=== PATIENT | male | born 1960 | race Caucasian/White ===

== ENCOUNTER 2017-06-12 12:13 | Inpatient (IN) | payer OTHER ==
[2017-06-12 13:11] VITALS: BMI 22.6
--- NOTE | 2017-06-12 15:42 | HP ---
Admission [facility] Chief Complaint: i need help to stop using cocaine and marijuana Allergies/Adverse Reactions: Allergies Allergy/AdvReac Type Severity Reaction Status Date / Time No Known Allergies Allergy Verified 06/12/17 15:47 History of Present Illness: this 56 years old male with cocaine and marijuana dependence,seeking rehab,last detox [facility] 2002 history of hypertension,copd, ambulation with cane ,fx of lumbar spine and herniated disc longest period of sobriety 13 years nicotine dependence - Ebola screening Have you traveled outside of the country in the last 21 days: No Have you had contact with anyone from an Ebola affected area: No Have you been sick,other than usual withdrawal symptoms: No Do you have a fever: No - Review of Systems Constitutional: Malaise, Unexplained wgt Loss EENT: reports: No Symptoms Reported Respiratory: reports: No Symptoms reported, Other (copd) Cardiac: reports: No Symptoms Reported GI: reports: No Symptoms Reported : reports: No Symptoms Reported Musculoskeletal: reports: No Symptoms Reported Integumentary: reports: No Symptoms Reported Neuro: reports: No Symptoms reported Endocrine: reports: No Symptoms Reported Hematology: reports: No Symptoms Reported Psychiatric: reports: No Sypmtoms Reported, Judgement Intact, Mood/Affect Appropiate, Orientated x3 (bipolar disorder) Patient History - Patient Medical History Hx Asthma: Yes (on albuterol inhaler) Hx Chronic Obstructive Pulmonary Disease (COPD): Yes Hx Cancer: No Hx Cardiac Disorders: No Hx Congestive Heart Failure: No Hx Hypertension: Yes (on med) Hx Pacemaker: No HX Cerebrovascular Accident: No Hx Seizures: No Hx Dementia: No Hx Diabetes: No Hx Gastrointestinal Disorders: Yes (reports gastric polyp removal 05/2015) Hx Liver Disease: No Hx Genitourinary Disorders: No Hx Renal Disease (ESRD): No Hx Thyroid Disease: No Hx Human Immunodeficiency Virus (HIV): No (2013 last negative) Hx Hepatitis C: No Hx Depression: No Hx Suicide Attempt: No Hx Bipolar Disorder: Yes (never hospitalized, never suicidal) Hx Schizophrenia: No Other Medical History: no homicidal,no sucidal,low back pain herniated disc, ambulation with cane - Patient Surgical History Hx Neurologic Surgery: No Hx Cataract Extraction: No Hx Cardiac Surgery: No Hx Lung Surgery: Yes (history lung collapse 1999 - chest tube right) Hx Breast Surgery: No Hx Breast Biopsy: No Hx Abdominal Surgery: No Hx Appendectomy: No Hx Cholecystectomy: No Hx Genitourinary Surgery: No Hx Section: No Hx Orthopedic Surgery: No Anesthesia Reaction: No - PPD History Previous Implant?: Yes Documented Results: Negative w/o proof Implanted On Prior [facility] Admission?: Yes PPD to be Administered?: Yes - Smoking Cessation Smoking history: Current every day smoker Have you smoked in the past 12 months: Yes Aproximately how many cigarettes per day: 4 Hx Chewing Tobacco Use: No Initiated information on smoking cessation: Yes 'Breaking Loose' booklet given: 06/12/17 - Substance & Tx. History Hx Alcohol Use: No Hx Substance Use: Yes Substance Use Type: Cocaine, Marijuana Hx Substance Use Treatment: Yes ([facility] in 2002) - Substances Abused Cocaine Route: Smoking Frequency: Daily Amount used: $100 AND UP Age of first use: 18 Date of Last Use: 06/11/17 Marijuana/Hashish Route: Smoking Frequency: Daily Amount used: $20 Age of first use: 16 Date of Last Use: 06/12/17 Family Disease History - Family Disease History Family Disease History: Diabetes: Mother, Heart Disease: Mother, Other: Father ( alcoholic), Daughter Admission Physical Exam S - Vital Signs Vital Signs: Vital Signs - 24 hr 06/12/17 13:10 Temperature 97.1 F L Pulse Rate 58 L Respiratory 16 Rate Blood Pressure 147/86 - Physical General Appearance: Yes: Within Normal Limits HEENTM: Yes: Normal ENT Inspection, Normocephalic, Pharynx Normal, Other (poor dental hygiene) Respiratory: Yes: Lungs Clear, Normal Breath Sounds, No Respiratory Distress, Other (s/p pneumothorax right) Neck: Yes: Within Normal Limits, Supple, Trachea in good position Breast: Yes: Within Normal Limits Cardiology: Yes: Within Normal Limits, Regular Rhythm, Regular Rate, S1, S2 Abdominal: Yes: Within Normal Limits, Normal Bowel Sounds, Non Tender, Flat, Soft Genitourinary: Yes: Within Normal Limits Back: Yes: Normal Inspection (low back pain herniated disc) Musculoskeletal: Yes: Back pain, Muscle Pain, Other (ambulation with cane) Extremities: Yes: Within Normal Limits Neurological: Yes: lay up operator II-XII NML intact, Fully Oriented, Alert, Motor Strength 5/5 Integumentary: Yes: Within Normal Limits Lymphatic: Yes: Within Normal Limits - Diagnostic (1) Alcohol dependence Current Visit: Yes Status: Acute (2) Nicotine dependence Current Visit: No Status: Chronic Comment: counseled cessation, did not like gum, patch did not help, chantix caused nausea (3) Cocaine dependence Current Visit: Yes Status: Acute (4) Cannabis dependence Current Visit: Yes Status: Acute (5) COPD (chronic obstructive pulmonary disease) Current Visit: No Status: Chronic Comment: for f/u with pulmonary, uses enhalers (missed 02/21 appt ) - made appt for him for 05/[address] garcia - CT done - told he has COPD - f/u appt 08/19/16 - did not f/u (6) HTN (hypertension) Current Visit: No Status: Chronic Comment: on meds, sees primary (7) Low back pain Current Visit: Yes Status: Acute (8) Herniated lumbar intervertebral disc Current Visit: Yes Status: Acute (9) Use of cane as ambulatory aid Current Visit: Yes Status: Acute (10) Bipolar disorder Current Visit: Yes Status: Acute Cleared for Admission S - Detox or Rehab Claeared for Rehab Admission: Yes [facility] Breath Alcohol Content Breath Alcohol Content: 0 Urine Drug Screen - Results Drug Screen Negative: No Urine Drug Screen Results: THC-Marijuana, MICHELLE-Cocaine Inpatient Rehab Admission - Initial Determination Are CD services needed?: Yes Free of communicable disease: Yes Not in need of hospitalization: Yes - Rehab Admission Criteria Previous failed treatment: Yes Poor recovery environment: Yes Comorbidities: Yes Lacks judgement: No Patient is meeting Inpatient Rehab admission criteria:: Yes
[2017-06-12] MEDS ORDERED: MAGNESIUM HYDROX 2400MG/30ML ORAL SUSPENSION 30 ML CUP PO PRN (16:03)
[2017-06-12] MEDS ORDERED: MENTHOL/PHENOL 1 EACH UD MM PRN (16:03)
[2017-06-12] MEDS ORDERED: LOPERAMIDE HCL 2 MG CAPSULE PO PRN (16:03)
[2017-06-12] MEDS ORDERED: IBUPROFEN 400 MG TABLET (FP) PO PRN (16:03)
[2017-06-12] MEDS ORDERED: hydrOXYzine PAMOATE 25 MG CAPSULE (FP) PO PRN (16:03)
[2017-06-12] MEDS ORDERED: guaiFENesin/D-METHORPHAN HB 10 ML UNIT-DOSE CUPS PO PRN (16:03)
[2017-06-12] MEDS ORDERED: P-EPHED 60MG/TRIPROLIDI 2.5MG TABLET PO PRN (16:03)
[2017-06-12] MEDS ORDERED: MAG HYDROX/AL HYDROX/SIMETH 30 ML UNIT-DOSE CUP PO PRN (16:03)
[2017-06-12] MEDS ORDERED: MAGNESIUM CITRATE 300 ML BOTTLE PO PRN (16:03)
[2017-06-12] MEDS ORDERED: ACETAMINOPHEN 325 MG TABLET (FP) PO PRN (16:03)
[2017-06-12] MEDS ORDERED: BACLOFEN 10 MG TABLET (FP) PO PRN (16:06)
--- NOTE | 2017-06-12 19:06 | PN ---
[facility] Progress Note Note: Psychiatrist broadcast operations manager note: Called to order medications for newly admitted patient from [facility] today. According to [facility] staff, patient list of home medications is the following: Cogentin 1 mg po daily, Risperdal 1 mg po BID, Seroquel 200 mg po HS and Cymbalta 60 mg po daily. However, pharmacy claims from [facility] shows scripts for Cogentin 1 mg po BID, Risperdal 2 mg daily & 3 mg HS , Seroquel 200 mg po HS and Cymbalta 60 mg po daily filled on 06/01/17. Medications are being ordered according to pharmacy claims not according to home medication entered by [facility] staff. Patient did not bring any bottle or any information for verification of his home medications. Unclear where [facility] staff obtained their information since patient could not tell nurse ZEUS the dosage of his medications
[2017-06-12] MEDS: GABAPENTIN 300 MG CAPSULE (FP) PO SCH ×2 (19:57→22:07)
[2017-06-12] MEDS: ERGOCALCIFEROL (VITAMIN D2) 50,000 UNIT CAPSULE (FP) PO SCH (19:58)
[2017-06-12] MEDS ORDERED: risperiDONE 2 MG TABLET PO SCH (22:00)
[2017-06-12] MEDS ORDERED: risperiDONE 1 MG TABLET (FP) PO SCH (22:00)
[2017-06-12] MEDS: THIAMINE HCL 100 MG TABLET (FP) PO SCH (22:05)
[2017-06-12] MEDS: QUEtiapine FUMARATE 200 MG TABLET PO SCH (22:06)
[2017-06-12] MEDS: BENZTROPINE MESYLATE 1 MG TABLET (FP) PO SCH (22:07)
[2017-06-12 23:08] LABS: URINE APPEARANCE CLEAR; URINE BILIRUBIN NEGATIVE (<2.0 mg/dL); URINE COLOR YELLOW; URINE GLUCOSE (UA) NEGATIVE (NEGATIVE); URINE KETONE NEGATIVE (NEGATIVE); URINE LEUK ESTERASE NEGATIVE (NEGATIVE); URINE NITRITE NEGATIVE (NEGATIVE); URINE PROTEIN NEGATIVE (NEGATIVE); URINE UROBILINOGEN NEGATIVE mg/dL (0.2-1.0)
[2017-06-12 23:17] LABS: URINE MUCUS RARE
--- NOTE | 2017-06-13 06:39 | HP ---
Psychiatrist Admission - Data Date of interview: 06/13/17 Admission source: Pain management clinic([facility]) Identifying data: This is the second [facility] for this 56 years old single male, father of 3 children, unemployed on SSI , domiciled living in a room Medical History: Significant for hypertension, COPD, herniated disc, history of surgeries for pneumothorax, fracture of lumbar spine and removal of gastric polyps. Smokes 4 cigarettes daily Psychiatric History: Patient reports being diagnose with Bipolar/Schozophrenia 6 -7 years ago. Denies previous psychiatric hospitalization or suicidal attempt. Reports seeing Dr Zhao, a private psychiatrist located on [facility] in [place] and he is prescribed Cogentin, Cymbalta, Seroquel and Risperdal. He has no recollection of dosage of these medications. According to [facility] home medication list, he is on Cogentin 1 mg po daily, Cymbalta 60 mg po daily, Seroquel 200 mg po HS and Risperdal 2 mg daily & 3 mg HS. According to pharmacy claims, scripts for Cogentin 1 mg po BID, Seroquel 200 mg po HS, Cymbalta 60 mg po daily and Risperdal 2 mg daily & 3 mg HS were filled on 06/01/17 at [facility]([phone]) located at [address] [place] [address]. At present, reports feeling well but sleeping poorly Physical/Sexual Abuse/Trauma History: Denies history of emotional, physical or sexual abuse or DV relationship Additional Comment: Reports history of 2 previous arrests on charges possession of control substance(crack cocaine). Denies being currently on probation Vital Signs: Vital Signs - 24 hr 06/12/17 06/13/17 06/13/17 13:10 00:30 03:30 Temperature 97.1 F L Pulse Rate 58 L Respiratory 16 18 20 Rate Blood Pressure 147/86 Allergies/Adverse Reactions: Allergies Allergy/AdvReac Type Severity Reaction Status Date / Time No Known Allergies Allergy Verified 06/12/17 15:47 Date of last physical exam: 06/12/17 Concur with the findings of this exam: Yes - Substance Abuse/Tx History Hx Alcohol Use: No Hx Substance Use: Yes Substance Use Type: Cocaine (Started smoking crack cocaine at age 18, consumes $ 100 worth daily. Last smoked on 06/11/17), Marijuana (Started smoking marijuana at age 16, consumes $20 worth daily. Last smoked on 06/12/17) Hx Substance Use Treatment: Yes ( 2 previous inpt rehab @ [facility]) Mental Status Exam - Mental Status Exam Alert and Oriented to: Time, Place, Person Cognitive Function: Fair Patient Appearance: Well Groomed, Disheveled Mood: Hopeful, Euthymic Affect: Appropriate Patient Behavior: Cooperative Speech Pattern: Clear Voice Loudness: Normal Thought Process: Intact, Goal Oriented Hallucinations: Denies Suicidal Ideation: Denies Homicidal Ideation: Denies Insight/Judgement: Fair Sleep: Poorly Appetite: Good Muscle strength/Tone: Normal Gait/Station: Other (uses a cane as ambulatory aid) Psychiatric Findings - Problem List (Joice 1, 2,3) (1) Cocaine dependence Current Visit: Yes Status: Acute (2) Cannabis dependence Current Visit: Yes Status: Acute (3) Nicotine dependence Current Visit: No Status: Chronic Comment: counseled cessation, did not like gum, patch did not help, chantix caused nausea (4) Bipolar disorder Current Visit: Yes Status: Chronic (5) Schizoaffective disorder Current Visit: Yes Status: Ruled-out (6) Substance-induced sleep disorder Current Visit: Yes Status: Acute (7) Herniated lumbar intervertebral disc Current Visit: Yes Status: Chronic (8) Low back pain Current Visit: Yes Status: Chronic (9) Use of cane as ambulatory aid Current Visit: Yes Status: Acute (10) COPD (chronic obstructive pulmonary disease) Current Visit: No Status: Chronic Comment: for f/u with pulmonary, uses enhalers (missed 02/21 appt ) - made appt for him for 05/[address] garcia - CT done - told he has COPD - f/u appt 08/19/16 - did not f/u (11) HTN (hypertension) Current Visit: No Status: Chronic Comment: on meds, sees primary (12) Low back pain radiating to both legs Current Visit: No Status: Chronic Comment: xray shows marked degenerative changes L5-S1, await medical records, risks of opiates discussed at length - pain agreement reviewed and signed, gets PT at [facility], [facility] baclofen prn though state not too helpful, heating pad use non opiate methods topical diclofenac not covered by insurance - will try to get [place] safekeeping of medication reviewed, does not drive (license suspended) , wearing back brace MRI 12/09 shows disc dessication, spondylosis, bilateral foraminal stenosis L5-S1 , broad based central disc protrusion - patient complains of very bothersome pain - asking for referral to neurosurg - will send to [facility] dr schroeder for evaluation - had f/u appt 03/14/16 for possible surgery but he did not go increase gabapentin to 600 qid did get heating pad consider EMG next visit ORT = 9 (high risk) DIRE = 15 (poor candidate for halfway opioids) - Initial Treatment Plan Initial Treatment Plan: 1) Continue Risperdal 2 mg daily & 3 mg HS, Cogentin 1 mg po BID, Seroquel 200 mg po HS and Cymbalta 60 mg po daily(medications confirmed by calling pharmacist as well). 2) Monitor progress
--- NOTE | 2017-06-13 09:52 | EKG ---
Test Reason : Blood Pressure : / mmHG Vent. Rate : 058 BPM Atrial Rate : 058 BPM P-R Int : 128 ms QRS Dur : 092 ms QT Int : 420 ms P-R-T Axes : 068 080 065 degrees QTc Int : 412 ms SINUS BRADYCARDIA MINIMAL VOLTAGE CRITERIA FOR LVH, MAY BE NORMAL VARIANT BORDERLINE ECG NO PREVIOUS ECGS AVAILABLE Confirmed by MD Fuad, Italo ([id number]) on 06/13/2017 9:51:56 AM Referred By: Confirmed By:Italo Merida MD
[2017-06-13] MEDS: ASPIRIN 81 MG CHEWABLE TABLETS PO SCH (09:54)
[2017-06-13] MEDS: PRENATAL VITAMINS W/ FOLIC ACID TABLET (FP) PO SCH (09:54)
[2017-06-13] MEDS: GABAPENTIN 300 MG CAPSULE (FP) PO SCH ×4 (09:54→21:40)
[2017-06-13 09:55] LABS: HEMATOCRIT 43.5 % (35.4-49); HEMOGLOBIN 15.1 GM/dL (11.7-16.9); MCH 32.7 pg (25.7-33.7); MCHC 34.8 g/dl (32.0-35.9); MEAN CELL VOLUME 93.7 fl (80-96); MEAN PLT VOLUME 9.7 fl (7.5-11.1); PLATELET COUNT 159 K/MM3 (134-434); RBC 4.64 M/mm3 (4.00-5.60); RDW 13.9 % (11.9-15.9); WHITE BLOOD COUNT 6.1 K/mm3 (4.0-10.0)
[2017-06-13] MEDS: risperiDONE 2 MG TABLET PO SCH (09:55)
[2017-06-13] MEDS: amLODIPine BESYLATE 10 MG TABLET (FP) PO SCH (09:55)
[2017-06-13] MEDS: BENZTROPINE MESYLATE 1 MG TABLET (FP) PO SCH ×2 (09:55→21:40)
[2017-06-13] MEDS ORDERED: BENZTROPINE MESYLATE 1 MG TABLET (FP) PO SCH (10:00)
[2017-06-13] MEDS ORDERED: DULoxetine HCL 20 MG CAPSULE.DR (FP) PO SCH (10:00)
[2017-06-13 10:12] LABS: CHLORIDE 103 mmol/L (98-107); POTASSIUM 4.2 mmol/L (3.5-5.1); SODIUM 141 mmol/L (136-145)
[2017-06-13 11:14] LABS: ALK PHOS 116 U/L (45-117); ANION GAP 4 (8-16); BILIRUBIN,TOTAL 0.3 mg/dL (0.2-1.0); BLOOD UREA NITROGEN 20 mg/dL (7-18); CALCIUM 9.3 mg/dL (8.5-10.1); CO2 34 mmol/L (21-32); CREATININE 0.9 mg/dL (0.7-1.3); GLUCOSE,RANDOM 81 mg/dL (74-106); SGOT/AST 15 U/L (15-37); SGPT/ALT 24 U/L (12-78)
[2017-06-13] MEDS: QUEtiapine FUMARATE 200 MG TABLET PO SCH (21:40)
[2017-06-13] MEDS: THIAMINE HCL 100 MG TABLET (FP) PO SCH (21:40)
[2017-06-13] MEDS: risperiDONE 3 MG TABLET PO SCH (21:40)
[2017-06-14] MEDS ORDERED: DULoxetine HCL 20 MG CAPSULE.DR (FP) ONE (08:51)
[2017-06-14] MEDS: DULoxetine HCL 60 MG CAPSULE.DR PO SCH (10:02)
[2017-06-14] MEDS: ASPIRIN 81 MG CHEWABLE TABLETS PO SCH (10:03)
[2017-06-14] MEDS: risperiDONE 2 MG TABLET PO SCH (10:03)
[2017-06-14] MEDS: PRENATAL VITAMINS W/ FOLIC ACID TABLET (FP) PO SCH (10:03)
[2017-06-14] MEDS: amLODIPine BESYLATE 10 MG TABLET (FP) PO SCH (10:03)
[2017-06-14] MEDS: GABAPENTIN 300 MG CAPSULE (FP) PO SCH ×4 (10:03→21:28)
[2017-06-14] MEDS: BENZTROPINE MESYLATE 1 MG TABLET (FP) PO SCH ×2 (10:03→21:28)
[2017-06-14] MEDS: risperiDONE 3 MG TABLET PO SCH (21:29)
[2017-06-14] MEDS: QUEtiapine FUMARATE 200 MG TABLET PO SCH (21:29)
[2017-06-14] MEDS: THIAMINE HCL 100 MG TABLET (FP) PO SCH (21:29)
[2017-06-15] MEDS ORDERED: DULoxetine HCL 20 MG CAPSULE.DR (FP) ONE (08:49)
[2017-06-15] MEDS: ASPIRIN 81 MG CHEWABLE TABLETS PO SCH (09:48)
[2017-06-15] MEDS: risperiDONE 2 MG TABLET PO SCH (09:48)
[2017-06-15] MEDS: PRENATAL VITAMINS W/ FOLIC ACID TABLET (FP) PO SCH (09:48)
[2017-06-15] MEDS: GABAPENTIN 300 MG CAPSULE (FP) PO SCH ×4 (09:48→21:25)
[2017-06-15] MEDS: amLODIPine BESYLATE 10 MG TABLET (FP) PO SCH (09:48)
[2017-06-15] MEDS: DULoxetine HCL 60 MG CAPSULE.DR PO SCH (09:49)
[2017-06-15] MEDS: BENZTROPINE MESYLATE 1 MG TABLET (FP) PO SCH ×2 (09:49→21:25)
[2017-06-15] MEDS: QUEtiapine FUMARATE 200 MG TABLET PO SCH (21:25)
[2017-06-15] MEDS: risperiDONE 3 MG TABLET PO SCH (21:25)
[2017-06-15] MEDS: THIAMINE HCL 100 MG TABLET (FP) PO SCH (21:25)
[2017-06-16] MEDS: PRENATAL VITAMINS W/ FOLIC ACID TABLET (FP) PO SCH (09:54)
[2017-06-16] MEDS: ASPIRIN 81 MG CHEWABLE TABLETS PO SCH (09:54)
[2017-06-16] MEDS: DULoxetine HCL 60 MG CAPSULE.DR PO SCH (09:54)
[2017-06-16] MEDS: amLODIPine BESYLATE 10 MG TABLET (FP) PO SCH (09:54)
[2017-06-16] MEDS: BENZTROPINE MESYLATE 1 MG TABLET (FP) PO SCH ×2 (09:56→21:18)
[2017-06-16] MEDS: GABAPENTIN 300 MG CAPSULE (FP) PO SCH ×4 (09:56→21:18)
[2017-06-16] MEDS: risperiDONE 2 MG TABLET PO SCH (09:56)
[2017-06-16] MEDS: QUEtiapine FUMARATE 200 MG TABLET PO SCH (21:18)
[2017-06-16] MEDS: risperiDONE 3 MG TABLET PO SCH (21:18)
[2017-06-16] MEDS: THIAMINE HCL 100 MG TABLET (FP) PO SCH (21:18)
[2017-06-17] MEDS: DULoxetine HCL 60 MG CAPSULE.DR PO SCH (10:16)
[2017-06-17] MEDS: PRENATAL VITAMINS W/ FOLIC ACID TABLET (FP) PO SCH (10:16)
[2017-06-17] MEDS: GABAPENTIN 300 MG CAPSULE (FP) PO SCH ×4 (10:16→21:41)
[2017-06-17] MEDS: BENZTROPINE MESYLATE 1 MG TABLET (FP) PO SCH ×2 (10:16→21:41)
[2017-06-17] MEDS: ASPIRIN 81 MG CHEWABLE TABLETS PO SCH (10:17)
[2017-06-17] MEDS: amLODIPine BESYLATE 10 MG TABLET (FP) PO SCH (10:17)
[2017-06-17] MEDS: risperiDONE 2 MG TABLET PO SCH (10:17)
[2017-06-17] MEDS: THIAMINE HCL 100 MG TABLET (FP) PO SCH (21:41)
[2017-06-17] MEDS: QUEtiapine FUMARATE 200 MG TABLET PO SCH (21:41)
[2017-06-17] MEDS: risperiDONE 3 MG TABLET PO SCH (21:41)
[2017-06-18] MEDS: DULoxetine HCL 60 MG CAPSULE.DR PO SCH (10:02)
[2017-06-18] MEDS: amLODIPine BESYLATE 10 MG TABLET (FP) PO SCH (10:02)
[2017-06-18] MEDS: BENZTROPINE MESYLATE 1 MG TABLET (FP) PO SCH ×2 (10:02→21:26)
[2017-06-18] MEDS: risperiDONE 2 MG TABLET PO SCH (10:02)
[2017-06-18] MEDS: ASPIRIN 81 MG CHEWABLE TABLETS PO SCH (10:02)
[2017-06-18] MEDS: GABAPENTIN 300 MG CAPSULE (FP) PO SCH ×4 (10:02→21:27)
[2017-06-18] MEDS: PRENATAL VITAMINS W/ FOLIC ACID TABLET (FP) PO SCH (10:02)
[2017-06-18] MEDS: QUEtiapine FUMARATE 200 MG TABLET PO SCH (21:26)
[2017-06-18] MEDS: THIAMINE HCL 100 MG TABLET (FP) PO SCH (21:26)
[2017-06-18] MEDS: risperiDONE 3 MG TABLET PO SCH (21:27)
[2017-06-18] MEDS: MELATONIN 5 MG TABLETS PO PRN (21:28)
[2017-06-19] MEDS: risperiDONE 2 MG TABLET PO SCH (10:15)
[2017-06-19] MEDS: amLODIPine BESYLATE 10 MG TABLET (FP) PO SCH (10:15)
[2017-06-19] MEDS: GABAPENTIN 300 MG CAPSULE (FP) PO SCH ×4 (10:16→21:18)
[2017-06-19] MEDS: ERGOCALCIFEROL (VITAMIN D2) 50,000 UNIT CAPSULE (FP) PO SCH (10:16)
[2017-06-19] MEDS: DULoxetine HCL 60 MG CAPSULE.DR PO SCH (10:16)
[2017-06-19] MEDS: ASPIRIN 81 MG CHEWABLE TABLETS PO SCH (10:16)
[2017-06-19] MEDS: PRENATAL VITAMINS W/ FOLIC ACID TABLET (FP) PO SCH (10:16)
[2017-06-19] MEDS: BENZTROPINE MESYLATE 1 MG TABLET (FP) PO SCH ×2 (10:18→21:17)
[2017-06-19] MEDS: THIAMINE HCL 100 MG TABLET (FP) PO SCH (21:17)
[2017-06-19] MEDS: QUEtiapine FUMARATE 200 MG TABLET PO SCH (21:17)
[2017-06-19] MEDS: risperiDONE 3 MG TABLET PO SCH (21:17)
[2017-06-20] MEDS: GABAPENTIN 300 MG CAPSULE (FP) PO SCH ×4 (09:56→21:26)
[2017-06-20] MEDS: amLODIPine BESYLATE 10 MG TABLET (FP) PO SCH (09:56)
[2017-06-20] MEDS: DULoxetine HCL 60 MG CAPSULE.DR PO SCH (09:56)
[2017-06-20] MEDS: PRENATAL VITAMINS W/ FOLIC ACID TABLET (FP) PO SCH (09:56)
[2017-06-20] MEDS: BENZTROPINE MESYLATE 1 MG TABLET (FP) PO SCH ×2 (09:56→21:26)
[2017-06-20] MEDS: ASPIRIN 81 MG CHEWABLE TABLETS PO SCH (09:56)
[2017-06-20] MEDS: risperiDONE 2 MG TABLET PO SCH (09:56)
[2017-06-20] MEDS: QUEtiapine FUMARATE 200 MG TABLET PO SCH (21:26)
[2017-06-20] MEDS: MELATONIN 5 MG TABLETS PO PRN (21:26)
[2017-06-20] MEDS: risperiDONE 3 MG TABLET PO SCH (21:26)
[2017-06-20] MEDS: THIAMINE HCL 100 MG TABLET (FP) PO SCH (21:26)
[2017-06-21] MEDS: amLODIPine BESYLATE 10 MG TABLET (FP) PO SCH (10:06)
[2017-06-21] MEDS: BENZTROPINE MESYLATE 1 MG TABLET (FP) PO SCH ×2 (10:06→21:23)
[2017-06-21] MEDS: risperiDONE 2 MG TABLET PO SCH (10:06)
[2017-06-21] MEDS: PRENATAL VITAMINS W/ FOLIC ACID TABLET (FP) PO SCH (10:06)
[2017-06-21] MEDS: DULoxetine HCL 60 MG CAPSULE.DR PO SCH (10:06)
[2017-06-21] MEDS: GABAPENTIN 300 MG CAPSULE (FP) PO SCH ×4 (10:06→21:23)
[2017-06-21] MEDS: ASPIRIN 81 MG CHEWABLE TABLETS PO SCH (10:06)
[2017-06-21] MEDS: THIAMINE HCL 100 MG TABLET (FP) PO SCH (21:22)
[2017-06-21] MEDS: QUEtiapine FUMARATE 200 MG TABLET PO SCH (21:22)
[2017-06-21] MEDS: risperiDONE 3 MG TABLET PO SCH (21:23)
[2017-06-21] MEDS: MELATONIN 5 MG TABLETS PO PRN (21:23)
[2017-06-22] MEDS: BENZTROPINE MESYLATE 1 MG TABLET (FP) PO SCH ×2 (09:45→21:37)
[2017-06-22] MEDS: ASPIRIN 81 MG CHEWABLE TABLETS PO SCH (09:45)
[2017-06-22] MEDS: PRENATAL VITAMINS W/ FOLIC ACID TABLET (FP) PO SCH (09:45)
[2017-06-22] MEDS: DULoxetine HCL 60 MG CAPSULE.DR PO SCH (09:45)
[2017-06-22] MEDS: amLODIPine BESYLATE 10 MG TABLET (FP) PO SCH (09:45)
[2017-06-22] MEDS: GABAPENTIN 300 MG CAPSULE (FP) PO SCH ×4 (09:45→21:37)
[2017-06-22] MEDS: risperiDONE 2 MG TABLET PO SCH (09:45)
--- NOTE | 2017-06-22 14:16 | PN ---
Psychiatric Progress Note Vital Signs: Vital Signs Period Temp Pulse Resp BP Sys/Gentile Pulse Ox Last 24 Hr 97.4 F 60-77 18-20 114-157/74-83 Date of Session: 06/22/17 Chief Complaint:: Discharge Note HPI: Patient addessing Cocaine and Cannabis Dependence comorbid with Nicotine Dependence, Bipolar Disorder and Substance-Induced Sleep Disorder ROS: LBP, Herniated Disc, COPD, HTN Current Medications: Active Medications Generic Name Dose Route Start Last Admin Trade Name Freq PRN Reason Stop Dose Admin Acetaminophen 650 mg 06/12/17 16:03 Tylenol - PO Q4H PRN FEVER Al Hydroxide/Mg Hydroxide 30 ml 06/12/17 16:03 Mylanta Oral Suspension - PO Q6H PRN DYSPEPSIA Amlodipine Besylate 10 mg 06/13/17 10:00 06/22/17 09:45 Norvasc - PO 10 mg DAILY JOSE Administration Aspirin 81 mg 06/13/17 10:00 06/22/17 09:45 Asa - PO 81 mg DAILY JOSE Administration Baclofen 10 mg 06/12/17 16:06 06/15/17 14:55 Lioresal - PO 10 mg TID PRN Administration BACK PAIN Benztropine Mesylate 1 mg 06/12/17 22:00 06/22/17 09:45 Cogentin - PO 1 mg BID JOSE Administration Duloxetine HCl 60 mg 06/13/17 12:31 06/22/17 09:45 Cymbalta - PO 60 mg DAILY JOSE Administration Ergocalciferol 50,000 unit 06/12/17 16:15 06/19/17 10:16 Drisdol - PO 50,000 unit Mo@1000 JOSE Administration Eucalyptus/Menthol/Phenol/Sorbitol 1 each 06/12/17 16:03 Cepastat Lozenge - MM Q4H PRN SORE THROAT Gabapentin 600 mg 06/12/17 18:00 06/22/17 09:45 Neurontin - PO 600 mg QID JOSE Administration Guaifenesin 10 ml 06/12/17 16:03 Robitussin Dm - PO Q6H PRN COUGH Hydroxyzine Pamoate 25 mg 06/12/17 16:03 Vistaril - PO Q4H PRN AGITATION Loperamide HCl 4 mg 06/12/17 16:03 Imodium - PO Q6H PRN DIARRHEA Magnesium Citrate 300 ml 06/12/17 16:03 Citroma - PO Q48H PRN CONSTIPATION Magnesium Hydroxide 30 ml 06/12/17 16:03 Milk Of Magnesia - PO DAILY PRN CONSTIPATION Melatonin 5 mg 06/12/17 22:00 06/21/17 21:23 Melatonin PO 5 mg HS PRN Administration INSOMNIA Multivit/Folic Acid/Iron 1 tab 06/13/17 10:00 06/22/17 09:45 Vitamins (Sjr) - PO 1 tab DAILY JOSE Administration Pseudoephedrine/Triprolidine 1 combo 06/12/17 16:03 Actifed - PO TID PRN NASAL CONGESTION Quetiapine Fumarate 200 mg 06/12/17 22:00 06/21/17 21:22 Seroquel - PO 200 mg HS JOSE Administration Risperidone 2 mg 06/13/17 10:00 06/22/17 09:45 Risperdal - PO 2 mg DAILY JOSE Administration Risperidone 3 mg 06/13/17 12:33 06/21/17 21:23 Risperdal - PO 3 mg HS JOSE Administration Thiamine HCl 100 mg 06/12/17 22:00 06/21/17 21:22 Vitamin B1 - PO 100 mg HS JOSE Administration Current Side Effect: No Lab tests ordered: Yes Lab tests reviewed: Yes Provider note:: Patient will complete this program on 06/23/17. He has met his treatment goals and will continue to address his issues in outpatient treatment at [facility]. Told advertising copy writer that from his participation in this program, he has learned to surround himself with sober network in order to maintain sobriety. He responded well to Cymbalta 60 mg po daily, Seroquel 200 mg po HS and Risperdal 2 mg daily & 3 mg HS. Scripts for 30 days supply of medications will be electronicaly transmitted to [facility] at [address] [place] [address]. He is stable for discharge on 06/23/17 Total face to face time:: 35 Mental Status Exam - Mental Status Exam Alert and Oriented to: Place Cognitive Function: Fair Patient Appearance: Well Groomed Mood: Hopeful, Euthymic Affect: Appropriate Patient Behavior: Cooperative Speech Pattern: Clear Voice Loudness: Normal Thought Process: Intact, Goal Oriented Thought Disorder: Not Present Hallucinations: Denies Suicidal Ideation: Denies Homicidal Ideation: Denies Insight/Judgement: Fair Sleep: Fair Appetite: Good Muscle strength/Tone: Normal Gait/Station: Normal Psychiatric Treatment Plan - Problem List (1) Cocaine dependence Current Visit: Yes (2) Cannabis dependence Current Visit: Yes (3) Nicotine dependence Current Visit: No Comment: counseled cessation, did not like gum, patch did not help, chantix caused nausea (4) Bipolar disorder Current Visit: Yes (5) Schizoaffective disorder Current Visit: Yes (6) Substance-induced sleep disorder Current Visit: Yes (7) Herniated lumbar intervertebral disc Current Visit: Yes (8) Low back pain Current Visit: Yes (9) Use of cane as ambulatory aid Current Visit: Yes (10) COPD (chronic obstructive pulmonary disease) Current Visit: No Comment: for f/u with pulmonary, uses enhalers (missed 02/21 appt ) - made appt for him for 05/[address] garcia - CT done - told he has COPD - f/u appt 08/19/16 - did not f/u (11) HTN (hypertension) Current Visit: No Comment: on meds, sees primary (12) Low back pain radiating to both legs Current Visit: No Comment: xray shows marked degenerative changes L5-S1, await medical records, risks of opiates discussed at length - pain agreement reviewed and signed, gets PT at [facility], [facility] baclofen prn though state not too helpful, heating pad use non opiate methods topical diclofenac not covered by insurance - will try to get [place] safekeeping of medication reviewed, does not drive (license suspended) , wearing back brace MRI 12/09 shows disc dessication, spondylosis, bilateral foraminal stenosis L5-S1 , broad based central disc protrusion - patient complains of very bothersome pain - asking for referral to neurosurg - will send to [facility] dr schroeder for evaluation - had f/u appt 03/14/16 for possible surgery but he did not go increase gabapentin to 600 qid did get heating pad consider EMG next visit ORT = 9 (high risk) DIRE = 15 (poor candidate for [facility] opioids) Initial treatment plan: Patient will be discharged tomorrow and referred to [facility] for outpatient treatment
[2017-06-22] MEDS: QUEtiapine FUMARATE 200 MG TABLET PO SCH (21:37)
[2017-06-22] MEDS: risperiDONE 3 MG TABLET PO SCH (21:37)
[2017-06-22] MEDS: THIAMINE HCL 100 MG TABLET (FP) PO SCH (21:37)
[2017-06-22] MEDS: MELATONIN 5 MG TABLETS PO PRN (21:38)
[2017-06-23 06:53] VITALS: BP 139/71; PULSE 62; TEMP 97.7
[2017-06-23] MEDS: ASPIRIN 81 MG CHEWABLE TABLETS PO SCH (09:04)
[2017-06-23] MEDS: GABAPENTIN 300 MG CAPSULE (FP) PO SCH (09:04)
[2017-06-23] MEDS: BENZTROPINE MESYLATE 1 MG TABLET (FP) PO SCH (09:04)
[2017-06-23] MEDS: amLODIPine BESYLATE 10 MG TABLET (FP) PO SCH (09:04)
[2017-06-23] MEDS: DULoxetine HCL 60 MG CAPSULE.DR PO SCH (09:04)
[2017-06-23] MEDS: risperiDONE 2 MG TABLET PO SCH (09:04)
[2017-06-23] MEDS: PRENATAL VITAMINS W/ FOLIC ACID TABLET (FP) PO SCH (09:04)
== END 2017-06-23 09:10 | disposition home or self-care (01) | DRG 772 ==
LOC: YASAS 12:13 → Y3W 15:59
PROVIDERS: ADMIT Psychiatry & Neurology Psychiatry; ATTEND Psychiatry & Neurology Psychiatry
PROC: HZ42ZZZ Group Counseling for Substance Abuse Treatment, Cognitive-Behavioral (ICD-10-PCS; principal; 2017-06-12)
DX: F14.20 Cocaine dependence, uncomplicated (principal); F12.20 Cannabis dependence, uncomplicated; F17.210 Nicotine dependence, cigarettes, uncomplicated; F25.9 Schizoaffective disorder, unspecified; F31.9 Bipolar disorder, unspecified; F19.282 Other psychoactive substance dependence with psychoactive substance-induced sleep disorder; I10 Essential (primary) hypertension; J44.9 Chronic obstructive pulmonary disease, unspecified; M51.16 Intervertebral disc disorders with radiculopathy, lumbar region; R26.2 Difficulty in walking, not elsewhere classified; Z99.89 Dependence on other enabling machines and devices
CPT/HCPCS: 36415; 80053; 81003; 81015; 85027; 86593; 93005; 93010; J0475

== ENCOUNTER 2020-02-20 14:06 | Emergency (ER) | payer OTHER ==
[2020-02-20 14:35] VITALS: BMI 22.9
[2020-02-20] MEDS ORDERED: MAG HYDROX/AL HYDROX/SIMETH 30 ML UNIT-DOSE CUP PO ONE (15:15)
[2020-02-20] MEDS ORDERED: FAMOTIDINE 10 MG TABLET PO ONE (15:15)
[2020-02-20] MEDS ORDERED: ONDANSETRON 4 MG/2 ML VIAL IVPUSH ONE (15:16)
[2020-02-20] MEDS ORDERED: FAMOTIDINE 10 MG TABLET ONE (15:38)
[2020-02-20] MEDS ORDERED: ONDANSETRON 4 MG/2 ML VIAL ONE (15:39)
[2020-02-20] MEDS ORDERED: MAG HYDROX/AL HYDROX/SIMETH 30 ML UNIT-DOSE CUP ONE (15:39)
[2020-02-20 16:21] LABS: HEMATOCRIT 46.4 % (35.4-49); HEMOGLOBIN 15.5 GM/dL (11.7-16.9); MCH 31.3 pg (25.7-33.7); MCHC 33.3 g/dl (32.0-35.9); MEAN CELL VOLUME 93.8 fl (80-96); MEAN PLT VOLUME 9.1 fl (7.5-11.1); PLATELET COUNT 158 K/MM3 (134-434); RBC 4.95 M/mm3 (4.00-5.60); RDW 13.6 % (11.9-15.9); WHITE BLOOD COUNT 10.8 K/mm3 (4.0-10.0)
[2020-02-20 16:37] LABS: CHLORIDE 102 mmol/L (98-107); POTASSIUM 4.4 mmol/L (3.5-5.1); SODIUM 137 mmol/L (136-145)
[2020-02-20 16:40] LABS: ALBUMIN 4.3 g/dl (3.4-5.0); ANION GAP 4 MMOL/L (8-16); CALCIUM 9.5 mg/dL (8.5-10.1); CO2 31 mmol/L (21-32); LIPASE 122 U/L (73-393)
[2020-02-20 16:41] LABS: GLUCOSE,RANDOM 86 mg/dL (74-106)
[2020-02-20 16:43] LABS: BILIRUBIN,TOTAL 0.5 mg/dL (0.2-1); CREATININE 0.9 mg/dL (0.55-1.3); SGOT/AST 14 U/L (15-37); SGPT/ALT 29 U/L (13-61)
[2020-02-20 16:44] LABS: ALK PHOS 103 U/L (45-117); TOT PROT 7.4 g/dl (6.4-8.2)
[2020-02-20 17:37] VITALS: BP 143/72; PULSE 63; TEMP 97.8
== END 2020-02-20 17:36 | disposition home or self-care (01) ==
LOC: JER 14:06
PROC: 3E033GC Introduction of Other Therapeutic Substance into Peripheral Vein, Percutaneous Approach (ICD-10-PCS; principal; 2020-02-20)
DX: F16.10 Hallucinogen abuse, uncomplicated (principal); F12.10 Cannabis abuse, uncomplicated; F14.10 Cocaine abuse, uncomplicated
CPT/HCPCS: 36415; 80053; 83690; 84484; 85027; 93005; 93010; 99284-25

== ENCOUNTER 2021-03-26 23:13 | Inpatient (IN) | payer OTHER ==
[2021-03-26 23:40] VITALS: BMI 21.4
[2021-03-27] MEDS ORDERED: NICOTINE POLACRILEX 2 MG GUM BC PRN (02:12)
[2021-03-27] MEDS ORDERED: MAGNESIUM CITRATE 300 ML BOTTLE PO PRN (02:12)
[2021-03-27] MEDS ORDERED: guaiFENesin 200 MG/10 ML 10 ML UNIT-DOSE CUPS PO PRN (02:12)
[2021-03-27] MEDS ORDERED: MAGNESIUM HYDROX 2400MG/30ML ORAL SUSPENSION 30 ML CUP PO PRN (02:12)
[2021-03-27] MEDS ORDERED: P-EPHED 60MG/TRIPROLIDI 2.5MG TABLET PO PRN (02:12)
[2021-03-27] MEDS ORDERED: LOPERAMIDE HCL 2 MG CAPSULE PO PRN (02:12)
[2021-03-27] MEDS ORDERED: MAG HYDROX/AL HYDROX/SIMETH 30 ML UNIT-DOSE CUP PO PRN (02:12)
[2021-03-27] MEDS ORDERED: TUBERCULIN PPD 5 TU/0.1ML VIAL ID ONE ×2 (04:23→08:16)
[2021-03-27] MEDS: ACETAMINOPHEN 325 MG TABLET (FP) PO PRN (09:38)
[2021-03-27] MEDS: NICOTINE 21 MG/24 HOURS TOPICAL PATCH TD SCH (09:38)
[2021-03-27] MEDS: PRENATAL VITAMINS W/ FOLIC ACID TABLET (FP) PO SCH (09:38)
[2021-03-27] MEDS: hydrOXYzine PAMOATE 25 MG CAPSULE (FP) PO PRN (09:39)
[2021-03-27] MEDS ORDERED: ASPIRIN 81 MG CHEWABLE TABLETS PO SCH (11:30)
[2021-03-27] MEDS ORDERED: CHLORTHALIDONE 25 MG TABLET PO SCH (11:30)
[2021-03-27 11:41] LABS: HEMATOCRIT 41.5 % (35.4-49); HEMOGLOBIN 14.2 GM/dL (11.7-16.9); MCH 31.8 pg (25.7-33.7); MCHC 34.3 g/dl (32.0-35.9); MEAN CELL VOLUME 92.8 fl (80-96); MEAN PLT VOLUME 8.4 fl (7.5-11.1); PLATELET COUNT 175 10^3/uL (134-434); RBC 4.47 M/mm3 (4.00-5.60); RDW 14.6 % (11.9-15.9); WHITE BLOOD COUNT 6.2 K/mm3 (4.0-10.0)
[2021-03-27 11:42] LABS: BLOOD UREA NITROGEN 28.4 mg/dL (7-18); CALCIUM 9.1 mg/dL (8.5-10.1)
[2021-03-27 11:43] LABS: ALBUMIN 3.8 g/dl (3.4-5.0)
[2021-03-27 11:46] LABS: CREATININE 0.9 mg/dL (0.55-1.3)
[2021-03-27 11:48] LABS: BILIRUBIN,TOTAL 0.3 mg/dL (0.2-1); TOT PROT 6.3 g/dl (6.4-8.2)
[2021-03-27 12:04] LABS: SYPHILIS W/ RPR CONF NON-REACTIVE (NONREACTIVE)
[2021-03-27] MEDS: amLODIPine BESYLATE 10 MG TABLET (FP) PO SCH (14:00)
[2021-03-27] MEDS: METHOCARBAMOL 500 MG TABLET PO SCH ×2 (18:06→21:05)
[2021-03-27] MEDS: THIAMINE HCL 100 MG TABLET (FP) PO SCH (21:05)
[2021-03-27] MEDS ORDERED: MELATONIN 5 MG TABLETS PO SCH (22:00)
[2021-03-28] MEDS: NICOTINE 21 MG/24 HOURS TOPICAL PATCH TD SCH (09:43)
[2021-03-28] MEDS: PRENATAL VITAMINS W/ FOLIC ACID TABLET (FP) PO SCH (09:43)
[2021-03-28] MEDS: METHOCARBAMOL 500 MG TABLET PO SCH ×4 (09:45→21:24)
[2021-03-28] MEDS: amLODIPine BESYLATE 10 MG TABLET (FP) PO SCH (09:45)
[2021-03-28] MEDS: ACETAMINOPHEN 325 MG TABLET (FP) PO PRN (09:46)
[2021-03-28] MEDS ORDERED: DULoxetine HCL 30 MG CAPSULE.DR PO ONE (13:16)
[2021-03-28] MEDS: BENZTROPINE MESYLATE 1 MG TABLET PO SCH ×2 (13:18→21:24)
[2021-03-28] MEDS: DULoxetine HCL 60 MG CAPSULE.DR PO SCH (13:18)
[2021-03-28] MEDS: risperiDONE 2 MG TABLET PO SCH ×2 (13:29→21:25)
[2021-03-28] MEDS: THIAMINE HCL 100 MG TABLET (FP) PO SCH (21:24)
[2021-03-28] MEDS: QUEtiapine FUMARATE 200 MG TABLET PO SCH (21:24)
[2021-03-28] MEDS: ATORVASTATIN CA 40 MG TABLET (FP) PO SCH (21:24)
[2021-03-28 21:50] LABS: PH,URINE 5.5 (5.0-8.0); URINE APPEARANCE CLEAR; URINE BILIRUBIN NEGATIVE (NEGATIVE); URINE COLOR YELLOW; URINE GLUCOSE (UA) NEGATIVE (NEGATIVE); URINE KETONE NEGATIVE (NEGATIVE); URINE LEUK ESTERASE NEGATIVE (NEGATIVE); URINE NITRITE NEGATIVE (NEGATIVE); URINE PROTEIN TRACE (NEGATIVE); URINE UROBILINOGEN 0.2 mg/dL (0.2-1.0)
[2021-03-29] MEDS ORDERED: DULoxetine HCL 30 MG CAPSULE.DR PO ONE (08:32)
[2021-03-29] MEDS: amLODIPine BESYLATE 10 MG TABLET (FP) PO SCH (09:48)
[2021-03-29] MEDS: PRENATAL VITAMINS W/ FOLIC ACID TABLET (FP) PO SCH (09:48)
[2021-03-29] MEDS: BENZTROPINE MESYLATE 1 MG TABLET PO SCH ×2 (09:49→21:15)
[2021-03-29] MEDS: NICOTINE 21 MG/24 HOURS TOPICAL PATCH TD SCH (09:49)
[2021-03-29] MEDS: PANTOPRAZOLE 20 MG TABLET PO SCH (09:49)
[2021-03-29] MEDS: METHOCARBAMOL 500 MG TABLET PO SCH ×4 (09:49→21:14)
[2021-03-29] MEDS: DULoxetine HCL 60 MG CAPSULE.DR PO SCH (09:49)
[2021-03-29] MEDS: risperiDONE 2 MG TABLET PO SCH ×2 (11:58→22:28)
[2021-03-29] MEDS: ATORVASTATIN CA 40 MG TABLET (FP) PO SCH (21:14)
[2021-03-29] MEDS: QUEtiapine FUMARATE 200 MG TABLET PO SCH (21:14)
[2021-03-29] MEDS: THIAMINE HCL 100 MG TABLET (FP) PO SCH (21:14)
[2021-03-30] MEDS ORDERED: DULoxetine HCL 30 MG CAPSULE.DR PO ONE (08:16)
[2021-03-30] MEDS: BENZTROPINE MESYLATE 1 MG TABLET PO SCH ×2 (09:36→21:21)
[2021-03-30] MEDS: PANTOPRAZOLE 20 MG TABLET PO SCH (09:36)
[2021-03-30] MEDS: DULoxetine HCL 60 MG CAPSULE.DR PO SCH (09:36)
[2021-03-30] MEDS: amLODIPine BESYLATE 10 MG TABLET (FP) PO SCH (09:37)
[2021-03-30] MEDS: NICOTINE 21 MG/24 HOURS TOPICAL PATCH TD SCH (09:37)
[2021-03-30] MEDS: PRENATAL VITAMINS W/ FOLIC ACID TABLET (FP) PO SCH (09:37)
[2021-03-30] MEDS: risperiDONE 2 MG TABLET PO SCH (09:38)
[2021-03-30] MEDS: METHOCARBAMOL 500 MG TABLET PO SCH ×4 (09:38→21:21)
[2021-03-30] MEDS: ATORVASTATIN CA 40 MG TABLET (FP) PO SCH (21:20)
[2021-03-30] MEDS: THIAMINE HCL 100 MG TABLET (FP) PO SCH (21:21)
[2021-03-30] MEDS: QUEtiapine FUMARATE 200 MG TABLET PO SCH (21:21)
[2021-03-30] MEDS ORDERED: risperiDONE 3 MG TABLET PO SCH (22:00)
[2021-03-31 08:10] LABS: SARS-CoV-2 NAA Not Detected (Not Detected)
[2021-03-31] MEDS ORDERED: DULoxetine HCL 30 MG CAPSULE.DR PO ONE ×2 (09:14→09:15)
[2021-03-31] MEDS: DULoxetine HCL 60 MG CAPSULE.DR PO SCH (10:00)
[2021-03-31] MEDS: amLODIPine BESYLATE 10 MG TABLET (FP) PO SCH ×2 (10:01→10:06)
[2021-03-31] MEDS: PRENATAL VITAMINS W/ FOLIC ACID TABLET (FP) PO SCH (10:01)
[2021-03-31] MEDS: PANTOPRAZOLE 20 MG TABLET PO SCH (10:02)
[2021-03-31] MEDS: NICOTINE 21 MG/24 HOURS TOPICAL PATCH TD SCH (10:02)
[2021-03-31] MEDS: BENZTROPINE MESYLATE 1 MG TABLET PO SCH ×2 (10:02→21:39)
[2021-03-31] MEDS: METHOCARBAMOL 500 MG TABLET PO SCH ×5 (10:02→21:39)
[2021-03-31] MEDS: risperiDONE 2 MG TABLET PO SCH (10:02)
[2021-03-31] MEDS: QUEtiapine FUMARATE 100 MG TABLET (FP) PO SCH (21:39)
[2021-03-31] MEDS: THIAMINE HCL 100 MG TABLET (FP) PO SCH (21:39)
[2021-03-31] MEDS: ATORVASTATIN CA 40 MG TABLET (FP) PO SCH (21:39)
[2021-03-31] MEDS: hydrOXYzine PAMOATE 25 MG CAPSULE (FP) PO PRN (21:39)
[2021-04-01] MEDS ORDERED: DULoxetine HCL 30 MG CAPSULE.DR PO ONE (08:35)
[2021-04-01] MEDS: NICOTINE 21 MG/24 HOURS TOPICAL PATCH TD SCH (10:04)
[2021-04-01] MEDS: DULoxetine HCL 60 MG CAPSULE.DR PO SCH (10:04)
[2021-04-01] MEDS: amLODIPine BESYLATE 10 MG TABLET (FP) PO SCH (10:04)
[2021-04-01] MEDS: BENZTROPINE MESYLATE 1 MG TABLET PO SCH ×2 (10:04→21:34)
[2021-04-01] MEDS: PRENATAL VITAMINS W/ FOLIC ACID TABLET (FP) PO SCH (10:05)
[2021-04-01] MEDS: PANTOPRAZOLE 20 MG TABLET PO SCH (10:05)
[2021-04-01] MEDS: METHOCARBAMOL 500 MG TABLET PO SCH ×4 (10:05→21:36)
[2021-04-01] MEDS: ATORVASTATIN CA 40 MG TABLET (FP) PO SCH (21:35)
[2021-04-01] MEDS: QUEtiapine FUMARATE 100 MG TABLET (FP) PO SCH (21:35)
[2021-04-01] MEDS: THIAMINE HCL 100 MG TABLET (FP) PO SCH (21:35)
[2021-04-01] MEDS: risperiDONE 2 MG TABLET PO SCH (23:27)
[2021-04-02] MEDS ORDERED: DULoxetine HCL 30 MG CAPSULE.DR PO ONE (09:16)
[2021-04-02] MEDS: PANTOPRAZOLE 20 MG TABLET PO SCH (10:28)
[2021-04-02] MEDS: NICOTINE 21 MG/24 HOURS TOPICAL PATCH TD SCH (10:28)
[2021-04-02] MEDS: amLODIPine BESYLATE 10 MG TABLET (FP) PO SCH (10:29)
[2021-04-02] MEDS: PRENATAL VITAMINS W/ FOLIC ACID TABLET (FP) PO SCH (10:29)
[2021-04-02] MEDS: DULoxetine HCL 60 MG CAPSULE.DR PO SCH (10:29)
[2021-04-02] MEDS: METHOCARBAMOL 500 MG TABLET PO SCH ×4 (10:29→21:28)
[2021-04-02] MEDS: BENZTROPINE MESYLATE 1 MG TABLET PO SCH ×2 (10:29→21:28)
[2021-04-02] MEDS: ATORVASTATIN CA 40 MG TABLET (FP) PO SCH (21:28)
[2021-04-02] MEDS: risperiDONE 2 MG TABLET PO SCH (21:28)
[2021-04-02] MEDS: hydrOXYzine PAMOATE 25 MG CAPSULE (FP) PO PRN (21:28)
[2021-04-02] MEDS: THIAMINE HCL 100 MG TABLET (FP) PO SCH (21:28)
[2021-04-02] MEDS: QUEtiapine FUMARATE 100 MG TABLET (FP) PO SCH (21:28)
[2021-04-03] MEDS ORDERED: DULoxetine HCL 30 MG CAPSULE.DR PO ONE (08:48)
[2021-04-03] MEDS: PRENATAL VITAMINS W/ FOLIC ACID TABLET (FP) PO SCH (09:39)
[2021-04-03] MEDS: amLODIPine BESYLATE 10 MG TABLET (FP) PO SCH (09:39)
[2021-04-03] MEDS: METHOCARBAMOL 500 MG TABLET PO SCH ×4 (09:39→21:36)
[2021-04-03] MEDS: NICOTINE 21 MG/24 HOURS TOPICAL PATCH TD SCH (09:40)
[2021-04-03] MEDS: PANTOPRAZOLE 20 MG TABLET PO SCH (09:40)
[2021-04-03] MEDS: BENZTROPINE MESYLATE 1 MG TABLET PO SCH ×2 (09:41→21:36)
[2021-04-03] MEDS: DULoxetine HCL 60 MG CAPSULE.DR PO SCH (09:41)
[2021-04-03] MEDS: risperiDONE 2 MG TABLET PO SCH (21:36)
[2021-04-03] MEDS: ATORVASTATIN CA 40 MG TABLET (FP) PO SCH (21:36)
[2021-04-03] MEDS: QUEtiapine FUMARATE 100 MG TABLET (FP) PO SCH (21:36)
[2021-04-03] MEDS: THIAMINE HCL 100 MG TABLET (FP) PO SCH (21:36)
[2021-04-03] MEDS: hydrOXYzine PAMOATE 25 MG CAPSULE (FP) PO PRN (21:36)
[2021-04-04] MEDS: hydrOXYzine PAMOATE 25 MG CAPSULE (FP) PO PRN ×2 (06:40→22:47)
[2021-04-04] MEDS: IBUPROFEN 400 MG TABLET (FP) PO PRN ×2 (06:41→17:39)
[2021-04-04] MEDS ORDERED: DULoxetine HCL 30 MG CAPSULE.DR PO ONE (08:30)
[2021-04-04] MEDS: PRENATAL VITAMINS W/ FOLIC ACID TABLET (FP) PO SCH (10:02)
[2021-04-04] MEDS: PANTOPRAZOLE 20 MG TABLET PO SCH (10:03)
[2021-04-04] MEDS: METHOCARBAMOL 500 MG TABLET PO SCH ×4 (10:03→22:47)
[2021-04-04] MEDS: DULoxetine HCL 60 MG CAPSULE.DR PO SCH (10:03)
[2021-04-04] MEDS: NICOTINE 21 MG/24 HOURS TOPICAL PATCH TD SCH (10:03)
[2021-04-04] MEDS: BENZTROPINE MESYLATE 1 MG TABLET PO SCH ×2 (10:03→22:48)
[2021-04-04] MEDS: amLODIPine BESYLATE 10 MG TABLET (FP) PO SCH (10:03)
[2021-04-04] MEDS: NICOTINE 10 MG CARTRIDGE (INHALER) IH PRN ×3 (14:10→22:52)
[2021-04-04] MEDS: THIAMINE HCL 100 MG TABLET (FP) PO SCH (22:47)
[2021-04-04] MEDS: risperiDONE 2 MG TABLET PO SCH (22:48)
[2021-04-04] MEDS: ATORVASTATIN CA 40 MG TABLET (FP) PO SCH (22:48)
[2021-04-04] MEDS: QUEtiapine FUMARATE 100 MG TABLET (FP) PO SCH (22:49)
[2021-04-05] MEDS ORDERED: DULoxetine HCL 30 MG CAPSULE.DR PO ONE (09:29)
[2021-04-05] MEDS: PANTOPRAZOLE 20 MG TABLET PO SCH (09:53)
[2021-04-05] MEDS: BENZTROPINE MESYLATE 1 MG TABLET PO SCH ×2 (09:53→22:05)
[2021-04-05] MEDS: METHOCARBAMOL 500 MG TABLET PO SCH ×4 (09:53→22:05)
[2021-04-05] MEDS: amLODIPine BESYLATE 10 MG TABLET (FP) PO SCH (09:53)
[2021-04-05] MEDS: PRENATAL VITAMINS W/ FOLIC ACID TABLET (FP) PO SCH (09:53)
[2021-04-05] MEDS: NICOTINE 10 MG CARTRIDGE (INHALER) IH PRN ×3 (09:54→22:06)
[2021-04-05] MEDS: NICOTINE 21 MG/24 HOURS TOPICAL PATCH TD SCH (09:54)
[2021-04-05] MEDS: DULoxetine HCL 60 MG CAPSULE.DR PO SCH (10:34)
[2021-04-05] MEDS: risperiDONE 2 MG TABLET PO SCH (22:05)
[2021-04-05] MEDS: QUEtiapine FUMARATE 100 MG TABLET (FP) PO SCH (22:05)
[2021-04-05] MEDS: hydrOXYzine PAMOATE 25 MG CAPSULE (FP) PO PRN (22:05)
[2021-04-05] MEDS: ATORVASTATIN CA 40 MG TABLET (FP) PO SCH (22:05)
[2021-04-05] MEDS: THIAMINE HCL 100 MG TABLET (FP) PO SCH (22:05)
[2021-04-06] MEDS ORDERED: DULoxetine HCL 30 MG CAPSULE.DR PO ONE (09:32)
[2021-04-06] MEDS: amLODIPine BESYLATE 10 MG TABLET (FP) PO SCH (09:57)
[2021-04-06] MEDS: PRENATAL VITAMINS W/ FOLIC ACID TABLET (FP) PO SCH (09:57)
[2021-04-06] MEDS: DULoxetine HCL 60 MG CAPSULE.DR PO SCH (09:57)
[2021-04-06] MEDS: BENZTROPINE MESYLATE 1 MG TABLET PO SCH ×2 (09:58→21:58)
[2021-04-06] MEDS: NICOTINE 21 MG/24 HOURS TOPICAL PATCH TD SCH (09:58)
[2021-04-06] MEDS: PANTOPRAZOLE 20 MG TABLET PO SCH (09:58)
[2021-04-06] MEDS: METHOCARBAMOL 500 MG TABLET PO SCH ×4 (09:58→21:59)
[2021-04-06] MEDS: NICOTINE 10 MG CARTRIDGE (INHALER) IH PRN ×3 (09:59→22:01)
[2021-04-06] MEDS: THIAMINE HCL 100 MG TABLET (FP) PO SCH (21:58)
[2021-04-06] MEDS: risperiDONE 2 MG TABLET PO SCH (21:59)
[2021-04-06] MEDS: QUEtiapine FUMARATE 100 MG TABLET (FP) PO SCH (21:59)
[2021-04-06] MEDS: ATORVASTATIN CA 40 MG TABLET (FP) PO SCH (21:59)
[2021-04-07] MEDS ORDERED: DULoxetine HCL 30 MG CAPSULE.DR PO ONE (09:13)
[2021-04-07] MEDS: amLODIPine BESYLATE 10 MG TABLET (FP) PO SCH (10:51)
[2021-04-07] MEDS: METHOCARBAMOL 500 MG TABLET PO SCH ×4 (10:51→21:31)
[2021-04-07] MEDS: PANTOPRAZOLE 20 MG TABLET PO SCH (10:51)
[2021-04-07] MEDS: PRENATAL VITAMINS W/ FOLIC ACID TABLET (FP) PO SCH (10:51)
[2021-04-07] MEDS: BENZTROPINE MESYLATE 1 MG TABLET PO SCH ×2 (10:51→21:31)
[2021-04-07] MEDS: DULoxetine HCL 60 MG CAPSULE.DR PO SCH (10:51)
[2021-04-07] MEDS: NICOTINE 21 MG/24 HOURS TOPICAL PATCH TD SCH (10:52)
[2021-04-07] MEDS: NICOTINE 10 MG CARTRIDGE (INHALER) IH PRN ×2 (16:39→21:34)
[2021-04-07] MEDS: ATORVASTATIN CA 40 MG TABLET (FP) PO SCH (21:31)
[2021-04-07] MEDS: QUEtiapine FUMARATE 100 MG TABLET (FP) PO SCH (21:31)
[2021-04-07] MEDS: THIAMINE HCL 100 MG TABLET (FP) PO SCH (21:31)
[2021-04-07] MEDS: risperiDONE 2 MG TABLET PO SCH (21:32)
[2021-04-07] MEDS: ACETAMINOPHEN 325 MG TABLET (FP) PO PRN (21:33)
[2021-04-08] MEDS ORDERED: DULoxetine HCL 30 MG CAPSULE.DR PO ONE (09:03)
[2021-04-08] MEDS: amLODIPine BESYLATE 10 MG TABLET (FP) PO SCH (10:13)
[2021-04-08] MEDS: PRENATAL VITAMINS W/ FOLIC ACID TABLET (FP) PO SCH (10:13)
[2021-04-08] MEDS: DULoxetine HCL 60 MG CAPSULE.DR PO SCH (10:13)
[2021-04-08] MEDS: METHOCARBAMOL 500 MG TABLET PO SCH ×4 (10:14→21:32)
[2021-04-08] MEDS: BENZTROPINE MESYLATE 1 MG TABLET PO SCH ×2 (10:14→21:32)
[2021-04-08] MEDS: PANTOPRAZOLE 20 MG TABLET PO SCH (10:14)
[2021-04-08] MEDS: NICOTINE 21 MG/24 HOURS TOPICAL PATCH TD SCH (10:15)
[2021-04-08] MEDS: NICOTINE 10 MG CARTRIDGE (INHALER) IH PRN (20:10)
[2021-04-08] MEDS: ATORVASTATIN CA 40 MG TABLET (FP) PO SCH (21:32)
[2021-04-08] MEDS: QUEtiapine FUMARATE 100 MG TABLET (FP) PO SCH (21:32)
[2021-04-08] MEDS: risperiDONE 2 MG TABLET PO SCH (21:32)
[2021-04-08] MEDS: THIAMINE HCL 100 MG TABLET (FP) PO SCH (21:32)
[2021-04-09] MEDS ORDERED: DULoxetine HCL 30 MG CAPSULE.DR PO ONE (09:14)
[2021-04-09] MEDS: METHOCARBAMOL 500 MG TABLET PO SCH ×4 (10:01→21:40)
[2021-04-09] MEDS: PANTOPRAZOLE 20 MG TABLET PO SCH (10:01)
[2021-04-09] MEDS: BENZTROPINE MESYLATE 1 MG TABLET PO SCH ×2 (10:01→21:40)
[2021-04-09] MEDS: DULoxetine HCL 60 MG CAPSULE.DR PO SCH (10:01)
[2021-04-09] MEDS: PRENATAL VITAMINS W/ FOLIC ACID TABLET (FP) PO SCH (10:01)
[2021-04-09] MEDS: amLODIPine BESYLATE 10 MG TABLET (FP) PO SCH (10:02)
[2021-04-09] MEDS: NICOTINE 21 MG/24 HOURS TOPICAL PATCH TD SCH (10:02)
[2021-04-09] MEDS: NICOTINE 10 MG CARTRIDGE (INHALER) IH PRN ×3 (10:02→21:41)
[2021-04-09] MEDS: hydrOXYzine PAMOATE 25 MG CAPSULE (FP) PO PRN (21:40)
[2021-04-09] MEDS: ATORVASTATIN CA 40 MG TABLET (FP) PO SCH (21:40)
[2021-04-09] MEDS: THIAMINE HCL 100 MG TABLET (FP) PO SCH (21:40)
[2021-04-09] MEDS: QUEtiapine FUMARATE 100 MG TABLET (FP) PO SCH (21:40)
[2021-04-09] MEDS: risperiDONE 2 MG TABLET PO SCH (21:40)
[2021-04-10] MEDS ORDERED: DULoxetine HCL 30 MG CAPSULE.DR PO ONE (08:50)
[2021-04-10] MEDS: PRENATAL VITAMINS W/ FOLIC ACID TABLET (FP) PO SCH (09:54)
[2021-04-10] MEDS: NICOTINE 21 MG/24 HOURS TOPICAL PATCH TD SCH (09:54)
[2021-04-10] MEDS: PANTOPRAZOLE 20 MG TABLET PO SCH (09:55)
[2021-04-10] MEDS: amLODIPine BESYLATE 10 MG TABLET (FP) PO SCH (09:55)
[2021-04-10] MEDS: BENZTROPINE MESYLATE 1 MG TABLET PO SCH ×2 (09:55→21:32)
[2021-04-10] MEDS: DULoxetine HCL 60 MG CAPSULE.DR PO SCH (09:55)
[2021-04-10] MEDS: METHOCARBAMOL 500 MG TABLET PO SCH ×4 (09:55→21:32)
[2021-04-10] MEDS: hydrOXYzine PAMOATE 25 MG CAPSULE (FP) PO PRN (09:55)
[2021-04-10] MEDS: NICOTINE 10 MG CARTRIDGE (INHALER) IH PRN ×3 (09:56→21:33)
[2021-04-10] MEDS: THIAMINE HCL 100 MG TABLET (FP) PO SCH (21:32)
[2021-04-10] MEDS: ATORVASTATIN CA 40 MG TABLET (FP) PO SCH (21:33)
[2021-04-10] MEDS: risperiDONE 2 MG TABLET PO SCH (21:33)
[2021-04-10] MEDS: QUEtiapine FUMARATE 100 MG TABLET (FP) PO SCH (21:33)
[2021-04-11] MEDS: NICOTINE 10 MG CARTRIDGE (INHALER) IH PRN ×4 (06:29→21:27)
[2021-04-11] MEDS ORDERED: DULoxetine HCL 30 MG CAPSULE.DR PO ONE (08:46)
[2021-04-11 09:12] VITALS: PULSE 78
[2021-04-11] MEDS: METHOCARBAMOL 500 MG TABLET PO SCH ×4 (10:25→21:26)
[2021-04-11] MEDS: PANTOPRAZOLE 20 MG TABLET PO SCH (10:25)
[2021-04-11] MEDS: amLODIPine BESYLATE 10 MG TABLET (FP) PO SCH (10:25)
[2021-04-11] MEDS: NICOTINE 21 MG/24 HOURS TOPICAL PATCH TD SCH (10:25)
[2021-04-11] MEDS: BENZTROPINE MESYLATE 1 MG TABLET PO SCH ×2 (10:25→21:26)
[2021-04-11] MEDS: DULoxetine HCL 60 MG CAPSULE.DR PO SCH (10:25)
[2021-04-11] MEDS: PRENATAL VITAMINS W/ FOLIC ACID TABLET (FP) PO SCH (10:25)
[2021-04-11] MEDS: THIAMINE HCL 100 MG TABLET (FP) PO SCH (21:26)
[2021-04-11] MEDS: QUEtiapine FUMARATE 100 MG TABLET (FP) PO SCH (21:26)
[2021-04-11] MEDS: risperiDONE 2 MG TABLET PO SCH (21:26)
[2021-04-11] MEDS: ATORVASTATIN CA 40 MG TABLET (FP) PO SCH (21:26)
[2021-04-11] MEDS: hydrOXYzine PAMOATE 25 MG CAPSULE (FP) PO PRN (21:26)
[2021-04-12] MEDS: NICOTINE 10 MG CARTRIDGE (INHALER) IH PRN (06:51)
[2021-04-12] MEDS: amLODIPine BESYLATE 10 MG TABLET (FP) PO SCH (09:26)
[2021-04-12] MEDS: METHOCARBAMOL 500 MG TABLET PO SCH (09:26)
[2021-04-12] MEDS: DULoxetine HCL 60 MG CAPSULE.DR PO SCH (09:26)
[2021-04-12] MEDS: PRENATAL VITAMINS W/ FOLIC ACID TABLET (FP) PO SCH (09:26)
[2021-04-12] MEDS: PANTOPRAZOLE 20 MG TABLET PO SCH (09:26)
[2021-04-12] MEDS: NICOTINE 21 MG/24 HOURS TOPICAL PATCH TD SCH (09:27)
[2021-04-12] MEDS: BENZTROPINE MESYLATE 1 MG TABLET PO SCH (09:28)
[2021-04-12 09:39] VITALS: BP 121/73; TEMP 98.2
== END 2021-04-12 10:00 | disposition home or self-care (01) | DRG 772 ==
LOC: YASAS 23:13 → Y5N 03-27 03:43
PROVIDERS: ADMIT Allergy & Immunology; ATTEND Allergy & Immunology
PROC: HZ42ZZZ Group Counseling for Substance Abuse Treatment, Cognitive-Behavioral (ICD-10-PCS; principal; 2021-03-27)
DX: F14.20 Cocaine dependence, uncomplicated (principal); F12.20 Cannabis dependence, uncomplicated; F17.210 Nicotine dependence, cigarettes, uncomplicated; F31.9 Bipolar disorder, unspecified; F25.9 Schizoaffective disorder, unspecified; F19.282 Other psychoactive substance dependence with psychoactive substance-induced sleep disorder; F19.24 Other psychoactive substance dependence with psychoactive substance-induced mood disorder; I10 Essential (primary) hypertension; J44.9 Chronic obstructive pulmonary disease, unspecified; K21.9 Gastro-esophageal reflux disease without esophagitis; E78.5 Hyperlipidemia, unspecified; M51.26 Other intervertebral disc displacement, lumbar region; R79.89 Other specified abnormal findings of blood chemistry; M54.50 Low back pain, unspecified; W19.XXXD Unspecified fall, subsequent encounter
CPT/HCPCS: 36415; 72100-TC-FY; 80053; 81003; 85027; 86780; 86803; 87811; 93005; 93010; C9803; U0003; U0005

== ENCOUNTER 2021-10-06 21:29 | Inpatient (IN) | payer OTHER ==
[2021-10-06 23:06] VITALS: BMI 21.4
[2021-10-06] MEDS ORDERED: MAGNESIUM HYDROX 2400MG/30ML ORAL SUSPENSION 30 ML CUP PO PRN (23:40)
[2021-10-06] MEDS ORDERED: LOPERAMIDE HCL 2 MG CAPSULE PO PRN (23:40)
[2021-10-06] MEDS ORDERED: MAG HYDROX/AL HYDROX/SIMETH 30 ML UNIT-DOSE CUP PO PRN (23:40)
[2021-10-06] MEDS ORDERED: P-EPHED 60MG/TRIPROLIDI 2.5MG TABLET PO PRN (23:40)
[2021-10-06] MEDS ORDERED: MAGNESIUM CITRATE 300 ML BOTTLE PO PRN (23:40)
[2021-10-06] MEDS ORDERED: guaiFENesin 200 MG/10 ML 10 ML UNIT-DOSE CUPS PO PRN (23:40)
[2021-10-06] MEDS ORDERED: ACETAMINOPHEN 325 MG TABLET (FP) PO PRN (23:40)
[2021-10-07] MEDS: hydrOXYzine PAMOATE 25 MG CAPSULE (FP) PO SCH ×5 (10:34→21:47)
[2021-10-07] MEDS: MELATONIN 5 MG TABLETS PO SCH ×2 (10:34→21:46)
[2021-10-07] MEDS: PRENATAL VITAMINS W/ FOLIC ACID TABLET (FP) PO SCH (10:39)
[2021-10-07] MEDS: NICOTINE 7 MG/24 HOURS TOPICAL PATCH TD SCH (10:40)
[2021-10-07] MEDS ORDERED: cloNIDine HCL 0.1 MG TABLET PO SCH (11:00)
[2021-10-07 11:36] LABS: HEMATOCRIT 48.2 % (35.4-49); HEMOGLOBIN 15.8 GM/dL (11.7-16.9); MCH 30.8 pg (25.7-33.7); MCHC 32.8 g/dl (32.0-35.9); MEAN CELL VOLUME 93.7 fl (80-96); MEAN PLT VOLUME 9.8 fl (7.5-11.1); PLATELET COUNT 176 10^3/uL (134-434); RBC 5.14 M/mm3 (4.00-5.60); RDW 14.4 % (11.9-15.9)
[2021-10-07] MEDS: cloNIDine HCL 0.1 MG TABLET PO SCH ×2 (11:37→21:46)
[2021-10-07 12:09] LABS: CALCIUM 9.3 mg/dL (8.5-10.1)
[2021-10-07 12:10] LABS: ALBUMIN 3.7 g/dl (3.4-5.0)
[2021-10-07 12:13] LABS: CREATININE 1.1 mg/dL (0.55-1.3)
[2021-10-07 12:14] LABS: BILIRUBIN,TOTAL 0.7 mg/dL (0.2-1); TOT PROT 6.6 g/dl (6.4-8.2)
[2021-10-07] MEDS: risperiDONE 2 MG TABLET PO SCH (14:24)
[2021-10-07] MEDS: BENZTROPINE MESYLATE 1 MG TABLET PO SCH (14:24)
[2021-10-07] MEDS: DULoxetine HCL 60 MG CAPSULE.DR PO SCH (14:25)
[2021-10-07] MEDS: THIAMINE HCL 100 MG TABLET (FP) PO SCH (21:47)
[2021-10-07] MEDS: QUEtiapine FUMARATE 200 MG TABLET PO SCH (21:47)
[2021-10-08] MEDS: hydrOXYzine PAMOATE 25 MG CAPSULE (FP) PO SCH ×5 (06:59→21:36)
[2021-10-08] MEDS: IBUPROFEN 400 MG TABLET (FP) PO PRN (07:00)
[2021-10-08] MEDS: amLODIPine BESYLATE 10 MG TABLET (FP) PO SCH (10:01)
[2021-10-08] MEDS: BENZTROPINE MESYLATE 1 MG TABLET PO SCH (10:02)
[2021-10-08] MEDS: risperiDONE 2 MG TABLET PO SCH (10:02)
[2021-10-08] MEDS: PRENATAL VITAMINS W/ FOLIC ACID TABLET (FP) PO SCH (10:02)
[2021-10-08] MEDS: DULoxetine HCL 60 MG CAPSULE.DR PO SCH (10:04)
[2021-10-08] MEDS: NICOTINE 7 MG/24 HOURS TOPICAL PATCH TD SCH (10:59)
[2021-10-08] MEDS: ASPIRIN 81 MG CHEWABLE TABLETS PO SCH (11:12)
[2021-10-08] MEDS: PANTOPRAZOLE 20 MG TABLET PO SCH (11:13)
[2021-10-08] MEDS: FUROSEMIDE 20 MG TABLET (FP) PO SCH (12:26)
[2021-10-08] MEDS: QUEtiapine FUMARATE 200 MG TABLET PO SCH (21:35)
[2021-10-08] MEDS: MELATONIN 5 MG TABLETS PO SCH (21:36)
[2021-10-08] MEDS: THIAMINE HCL 100 MG TABLET (FP) PO SCH (21:36)
[2021-10-09] MEDS: hydrOXYzine PAMOATE 25 MG CAPSULE (FP) PO SCH ×5 (06:41→21:27)
[2021-10-09] MEDS: PRENATAL VITAMINS W/ FOLIC ACID TABLET (FP) PO SCH (10:31)
[2021-10-09] MEDS: BENZTROPINE MESYLATE 1 MG TABLET PO SCH (10:31)
[2021-10-09] MEDS: ASPIRIN 81 MG CHEWABLE TABLETS PO SCH (10:31)
[2021-10-09] MEDS: risperiDONE 2 MG TABLET PO SCH (10:31)
[2021-10-09] MEDS: DULoxetine HCL 60 MG CAPSULE.DR PO SCH (10:32)
[2021-10-09] MEDS: amLODIPine BESYLATE 10 MG TABLET (FP) PO SCH (10:32)
[2021-10-09] MEDS: NICOTINE 7 MG/24 HOURS TOPICAL PATCH TD SCH (10:32)
[2021-10-09] MEDS: FUROSEMIDE 20 MG TABLET (FP) PO SCH (10:32)
[2021-10-09] MEDS: PANTOPRAZOLE 20 MG TABLET PO SCH (10:32)
[2021-10-09] MEDS: MELATONIN 5 MG TABLETS PO SCH (21:27)
[2021-10-09] MEDS: THIAMINE HCL 100 MG TABLET (FP) PO SCH (21:27)
[2021-10-09] MEDS: QUEtiapine FUMARATE 200 MG TABLET PO SCH (21:27)
[2021-10-10] MEDS: hydrOXYzine PAMOATE 25 MG CAPSULE (FP) PO SCH ×2 (06:23→10:34)
[2021-10-10] MEDS: NICOTINE 10 MG CARTRIDGE (INHALER) IH PRN ×2 (06:25→21:36)
[2021-10-10] MEDS: DULoxetine HCL 60 MG CAPSULE.DR PO SCH (10:34)
[2021-10-10] MEDS: ASPIRIN 81 MG CHEWABLE TABLETS PO SCH (10:34)
[2021-10-10] MEDS: PRENATAL VITAMINS W/ FOLIC ACID TABLET (FP) PO SCH (10:34)
[2021-10-10] MEDS: amLODIPine BESYLATE 10 MG TABLET (FP) PO SCH (10:35)
[2021-10-10] MEDS: PANTOPRAZOLE 20 MG TABLET PO SCH (10:35)
[2021-10-10] MEDS: BENZTROPINE MESYLATE 1 MG TABLET PO SCH (10:35)
[2021-10-10] MEDS: risperiDONE 2 MG TABLET PO SCH (10:35)
[2021-10-10] MEDS: NICOTINE 7 MG/24 HOURS TOPICAL PATCH TD SCH (10:45)
[2021-10-10] MEDS ORDERED: hydrOXYzine PAMOATE 25 MG CAPSULE (FP) PO PRN (10:45)
[2021-10-10] MEDS: FUROSEMIDE 20 MG TABLET (FP) PO SCH (10:46)
[2021-10-10] MEDS: THIAMINE HCL 100 MG TABLET (FP) PO SCH (21:35)
[2021-10-10] MEDS: MELATONIN 5 MG TABLETS PO SCH (21:35)
[2021-10-10] MEDS: QUEtiapine FUMARATE 200 MG TABLET PO SCH (21:36)
[2021-10-11 07:08] VITALS: RESP 18
[2021-10-11] MEDS: FUROSEMIDE 20 MG TABLET (FP) PO SCH (10:12)
[2021-10-11] MEDS: PANTOPRAZOLE 20 MG TABLET PO SCH (10:12)
[2021-10-11] MEDS: risperiDONE 2 MG TABLET PO SCH (10:12)
[2021-10-11] MEDS: DULoxetine HCL 60 MG CAPSULE.DR PO SCH (10:12)
[2021-10-11] MEDS: amLODIPine BESYLATE 10 MG TABLET (FP) PO SCH (10:12)
[2021-10-11] MEDS: ASPIRIN 81 MG CHEWABLE TABLETS PO SCH (10:12)
[2021-10-11] MEDS: BENZTROPINE MESYLATE 1 MG TABLET PO SCH (10:12)
[2021-10-11] MEDS: NICOTINE 7 MG/24 HOURS TOPICAL PATCH TD SCH (10:12)
[2021-10-11] MEDS: PRENATAL VITAMINS W/ FOLIC ACID TABLET (FP) PO SCH (10:12)
[2021-10-11] MEDS: MELATONIN 5 MG TABLETS PO SCH (21:48)
[2021-10-11] MEDS: QUEtiapine FUMARATE 200 MG TABLET PO SCH (21:48)
[2021-10-11] MEDS: THIAMINE HCL 100 MG TABLET (FP) PO SCH (21:48)
[2021-10-12] MEDS: NICOTINE 10 MG CARTRIDGE (INHALER) IH PRN (06:46)
[2021-10-12] MEDS: DULoxetine HCL 60 MG CAPSULE.DR PO SCH (10:33)
[2021-10-12] MEDS: ASPIRIN 81 MG CHEWABLE TABLETS PO SCH (10:33)
[2021-10-12] MEDS: FUROSEMIDE 20 MG TABLET (FP) PO SCH (10:33)
[2021-10-12] MEDS: BENZTROPINE MESYLATE 1 MG TABLET PO SCH (10:33)
[2021-10-12] MEDS: NICOTINE 7 MG/24 HOURS TOPICAL PATCH TD SCH (10:34)
[2021-10-12] MEDS: PRENATAL VITAMINS W/ FOLIC ACID TABLET (FP) PO SCH (10:34)
[2021-10-12] MEDS: risperiDONE 2 MG TABLET PO SCH (10:34)
[2021-10-12] MEDS: PANTOPRAZOLE 20 MG TABLET PO SCH (10:34)
[2021-10-12] MEDS: amLODIPine BESYLATE 10 MG TABLET (FP) PO SCH (10:34)
[2021-10-12] MEDS: MELATONIN 5 MG TABLETS PO SCH (22:00)
[2021-10-12] MEDS: THIAMINE HCL 100 MG TABLET (FP) PO SCH (22:00)
[2021-10-12] MEDS: QUEtiapine FUMARATE 200 MG TABLET PO SCH (22:00)
[2021-10-13] MEDS: NICOTINE 10 MG CARTRIDGE (INHALER) IH PRN ×2 (06:42→21:11)
[2021-10-13] MEDS: amLODIPine BESYLATE 10 MG TABLET (FP) PO SCH (10:13)
[2021-10-13] MEDS: BENZTROPINE MESYLATE 1 MG TABLET PO SCH (10:13)
[2021-10-13] MEDS: DULoxetine HCL 60 MG CAPSULE.DR PO SCH (10:13)
[2021-10-13] MEDS: ASPIRIN 81 MG CHEWABLE TABLETS PO SCH (10:13)
[2021-10-13] MEDS: risperiDONE 2 MG TABLET PO SCH (10:13)
[2021-10-13] MEDS: FUROSEMIDE 20 MG TABLET (FP) PO SCH (10:13)
[2021-10-13] MEDS: PANTOPRAZOLE 20 MG TABLET PO SCH (10:13)
[2021-10-13] MEDS: NICOTINE 7 MG/24 HOURS TOPICAL PATCH TD SCH (10:13)
[2021-10-13] MEDS: PRENATAL VITAMINS W/ FOLIC ACID TABLET (FP) PO SCH (10:13)
[2021-10-13] MEDS: THIAMINE HCL 100 MG TABLET (FP) PO SCH (21:09)
[2021-10-13] MEDS: MELATONIN 5 MG TABLETS PO SCH (21:09)
[2021-10-13] MEDS: QUEtiapine FUMARATE 200 MG TABLET PO SCH (21:09)
[2021-10-14] MEDS: IBUPROFEN 400 MG TABLET (FP) PO PRN (06:24)
[2021-10-14] MEDS: risperiDONE 2 MG TABLET PO SCH (10:15)
[2021-10-14] MEDS: PANTOPRAZOLE 20 MG TABLET PO SCH (10:15)
[2021-10-14] MEDS: PRENATAL VITAMINS W/ FOLIC ACID TABLET (FP) PO SCH (10:15)
[2021-10-14] MEDS: amLODIPine BESYLATE 10 MG TABLET (FP) PO SCH (10:16)
[2021-10-14] MEDS: NICOTINE 10 MG CARTRIDGE (INHALER) IH PRN (10:16)
[2021-10-14] MEDS: BENZTROPINE MESYLATE 1 MG TABLET PO SCH (10:16)
[2021-10-14] MEDS: ASPIRIN 81 MG CHEWABLE TABLETS PO SCH (10:16)
[2021-10-14] MEDS: DULoxetine HCL 60 MG CAPSULE.DR PO SCH (10:16)
[2021-10-14] MEDS: NICOTINE 7 MG/24 HOURS TOPICAL PATCH TD SCH (10:16)
[2021-10-14] MEDS: FUROSEMIDE 20 MG TABLET (FP) PO SCH (10:16)
[2021-10-14] MEDS: THIAMINE HCL 100 MG TABLET (FP) PO SCH (21:20)
[2021-10-14] MEDS: QUEtiapine FUMARATE 200 MG TABLET PO SCH (21:20)
[2021-10-14] MEDS: MELATONIN 5 MG TABLETS PO SCH (21:20)
[2021-10-15] MEDS: PANTOPRAZOLE 20 MG TABLET PO SCH (10:39)
[2021-10-15] MEDS: FUROSEMIDE 20 MG TABLET (FP) PO SCH (10:39)
[2021-10-15] MEDS: DULoxetine HCL 60 MG CAPSULE.DR PO SCH (10:39)
[2021-10-15] MEDS: PRENATAL VITAMINS W/ FOLIC ACID TABLET (FP) PO SCH (10:39)
[2021-10-15] MEDS: risperiDONE 2 MG TABLET PO SCH (10:39)
[2021-10-15] MEDS: amLODIPine BESYLATE 10 MG TABLET (FP) PO SCH (10:39)
[2021-10-15] MEDS: ASPIRIN 81 MG CHEWABLE TABLETS PO SCH (10:39)
[2021-10-15] MEDS: BENZTROPINE MESYLATE 1 MG TABLET PO SCH (10:39)
[2021-10-15] MEDS: NICOTINE 10 MG CARTRIDGE (INHALER) IH PRN (10:40)
[2021-10-15] MEDS: NICOTINE 7 MG/24 HOURS TOPICAL PATCH TD SCH (10:40)
[2021-10-15] MEDS: THIAMINE HCL 100 MG TABLET (FP) PO SCH (21:16)
[2021-10-15] MEDS: MELATONIN 5 MG TABLETS PO SCH (21:16)
[2021-10-15] MEDS: QUEtiapine FUMARATE 200 MG TABLET PO SCH (21:16)
[2021-10-16] MEDS: BENZTROPINE MESYLATE 1 MG TABLET PO SCH (10:24)
[2021-10-16] MEDS: ASPIRIN 81 MG CHEWABLE TABLETS PO SCH (10:24)
[2021-10-16] MEDS: PANTOPRAZOLE 20 MG TABLET PO SCH (10:24)
[2021-10-16] MEDS: DULoxetine HCL 60 MG CAPSULE.DR PO SCH (10:24)
[2021-10-16] MEDS: PRENATAL VITAMINS W/ FOLIC ACID TABLET (FP) PO SCH (10:24)
[2021-10-16] MEDS: NICOTINE 7 MG/24 HOURS TOPICAL PATCH TD SCH (10:24)
[2021-10-16] MEDS: amLODIPine BESYLATE 10 MG TABLET (FP) PO SCH (10:24)
[2021-10-16] MEDS: FUROSEMIDE 20 MG TABLET (FP) PO SCH (10:24)
[2021-10-16] MEDS: risperiDONE 2 MG TABLET PO SCH (10:24)
[2021-10-16] MEDS: NICOTINE 10 MG CARTRIDGE (INHALER) IH PRN (10:31)
[2021-10-16] MEDS: QUEtiapine FUMARATE 200 MG TABLET PO SCH (21:29)
[2021-10-16] MEDS: THIAMINE HCL 100 MG TABLET (FP) PO SCH (21:29)
[2021-10-16] MEDS: MELATONIN 5 MG TABLETS PO SCH (21:29)
[2021-10-17] MEDS: PRENATAL VITAMINS W/ FOLIC ACID TABLET (FP) PO SCH (09:53)
[2021-10-17] MEDS: amLODIPine BESYLATE 10 MG TABLET (FP) PO SCH (09:53)
[2021-10-17] MEDS: DULoxetine HCL 60 MG CAPSULE.DR PO SCH (09:53)
[2021-10-17] MEDS: BENZTROPINE MESYLATE 1 MG TABLET PO SCH (09:53)
[2021-10-17] MEDS: NICOTINE 10 MG CARTRIDGE (INHALER) IH PRN ×2 (09:53→21:22)
[2021-10-17] MEDS: risperiDONE 2 MG TABLET PO SCH (09:53)
[2021-10-17] MEDS: NICOTINE 7 MG/24 HOURS TOPICAL PATCH TD SCH (09:53)
[2021-10-17] MEDS: ASPIRIN 81 MG CHEWABLE TABLETS PO SCH (09:53)
[2021-10-17] MEDS: PANTOPRAZOLE 20 MG TABLET PO SCH (09:53)
[2021-10-17] MEDS: FUROSEMIDE 20 MG TABLET (FP) PO SCH (09:53)
[2021-10-17] MEDS: THIAMINE HCL 100 MG TABLET (FP) PO SCH (21:21)
[2021-10-17] MEDS: MELATONIN 5 MG TABLETS PO SCH (21:21)
[2021-10-17] MEDS: QUEtiapine FUMARATE 200 MG TABLET PO SCH (21:21)
[2021-10-18] MEDS: PANTOPRAZOLE 20 MG TABLET PO SCH (10:25)
[2021-10-18] MEDS: PRENATAL VITAMINS W/ FOLIC ACID TABLET (FP) PO SCH (10:25)
[2021-10-18] MEDS: ASPIRIN 81 MG CHEWABLE TABLETS PO SCH (10:26)
[2021-10-18] MEDS: DULoxetine HCL 60 MG CAPSULE.DR PO SCH (10:26)
[2021-10-18] MEDS: risperiDONE 2 MG TABLET PO SCH (10:26)
[2021-10-18] MEDS: amLODIPine BESYLATE 10 MG TABLET (FP) PO SCH (10:26)
[2021-10-18] MEDS: FUROSEMIDE 20 MG TABLET (FP) PO SCH (10:26)
[2021-10-18] MEDS: BENZTROPINE MESYLATE 1 MG TABLET PO SCH (10:26)
[2021-10-18] MEDS: NICOTINE 10 MG CARTRIDGE (INHALER) IH PRN ×2 (10:27→21:18)
[2021-10-18] MEDS: NICOTINE 7 MG/24 HOURS TOPICAL PATCH TD SCH (10:27)
[2021-10-18] MEDS: QUEtiapine FUMARATE 200 MG TABLET PO SCH (21:18)
[2021-10-18] MEDS: MELATONIN 5 MG TABLETS PO SCH (21:18)
[2021-10-18] MEDS: THIAMINE HCL 100 MG TABLET (FP) PO SCH (21:18)
[2021-10-19] MEDS: PRENATAL VITAMINS W/ FOLIC ACID TABLET (FP) PO SCH (10:17)
[2021-10-19] MEDS: BENZTROPINE MESYLATE 1 MG TABLET PO SCH (10:18)
[2021-10-19] MEDS: PANTOPRAZOLE 20 MG TABLET PO SCH (10:18)
[2021-10-19] MEDS: amLODIPine BESYLATE 10 MG TABLET (FP) PO SCH (10:18)
[2021-10-19] MEDS: DULoxetine HCL 60 MG CAPSULE.DR PO SCH (10:18)
[2021-10-19] MEDS: ASPIRIN 81 MG CHEWABLE TABLETS PO SCH (10:18)
[2021-10-19] MEDS: FUROSEMIDE 20 MG TABLET (FP) PO SCH (10:19)
[2021-10-19] MEDS: risperiDONE 2 MG TABLET PO SCH (10:19)
[2021-10-19] MEDS: NICOTINE 10 MG CARTRIDGE (INHALER) IH PRN ×2 (10:19→21:14)
[2021-10-19] MEDS: NICOTINE 7 MG/24 HOURS TOPICAL PATCH TD SCH (10:19)
[2021-10-19] MEDS: QUEtiapine FUMARATE 200 MG TABLET PO SCH (21:13)
[2021-10-19] MEDS: MELATONIN 5 MG TABLETS PO SCH (21:13)
[2021-10-19] MEDS: THIAMINE HCL 100 MG TABLET (FP) PO SCH (21:13)
[2021-10-20] MEDS: PRENATAL VITAMINS W/ FOLIC ACID TABLET (FP) PO SCH (10:16)
[2021-10-20] MEDS: PANTOPRAZOLE 20 MG TABLET PO SCH (10:16)
[2021-10-20] MEDS: BENZTROPINE MESYLATE 1 MG TABLET PO SCH (10:16)
[2021-10-20] MEDS: amLODIPine BESYLATE 10 MG TABLET (FP) PO SCH (10:16)
[2021-10-20] MEDS: FUROSEMIDE 20 MG TABLET (FP) PO SCH (10:16)
[2021-10-20] MEDS: ASPIRIN 81 MG CHEWABLE TABLETS PO SCH (10:17)
[2021-10-20] MEDS: risperiDONE 2 MG TABLET PO SCH (10:17)
[2021-10-20] MEDS: DULoxetine HCL 60 MG CAPSULE.DR PO SCH (10:17)
[2021-10-20] MEDS: NICOTINE 7 MG/24 HOURS TOPICAL PATCH TD SCH (10:17)
[2021-10-20] MEDS: THIAMINE HCL 100 MG TABLET (FP) PO SCH (21:26)
[2021-10-20] MEDS: NICOTINE 10 MG CARTRIDGE (INHALER) IH PRN (21:26)
[2021-10-20] MEDS: QUEtiapine FUMARATE 200 MG TABLET PO SCH (21:26)
[2021-10-20] MEDS: MELATONIN 5 MG TABLETS PO SCH (21:26)
[2021-10-21 07:10] VITALS: TEMP 98.4
[2021-10-21 08:43] VITALS: BP 141/73; PULSE 70
[2021-10-21] MEDS: DULoxetine HCL 60 MG CAPSULE.DR PO SCH (09:03)
[2021-10-21] MEDS: PRENATAL VITAMINS W/ FOLIC ACID TABLET (FP) PO SCH (09:03)
[2021-10-21] MEDS: BENZTROPINE MESYLATE 1 MG TABLET PO SCH (09:03)
[2021-10-21] MEDS: amLODIPine BESYLATE 10 MG TABLET (FP) PO SCH (09:03)
[2021-10-21] MEDS: NICOTINE 7 MG/24 HOURS TOPICAL PATCH TD SCH (09:04)
[2021-10-21] MEDS: risperiDONE 2 MG TABLET PO SCH (09:04)
[2021-10-21] MEDS: ASPIRIN 81 MG CHEWABLE TABLETS PO SCH (09:04)
[2021-10-21] MEDS: FUROSEMIDE 20 MG TABLET (FP) PO SCH (09:04)
[2021-10-21] MEDS: PANTOPRAZOLE 20 MG TABLET PO SCH (09:04)
== END 2021-10-21 09:19 | disposition home or self-care (01) | DRG 772 ==
LOC: YASAS 21:29 → Y3W 10-07 07:15
PROVIDERS: ADMIT Allergy & Immunology; ATTEND Allergy & Immunology
PROC: HZ42ZZZ Group Counseling for Substance Abuse Treatment, Cognitive-Behavioral (ICD-10-PCS; principal; 2021-10-07)
DX: F14.20 Cocaine dependence, uncomplicated (principal); F12.20 Cannabis dependence, uncomplicated; F17.210 Nicotine dependence, cigarettes, uncomplicated; F31.9 Bipolar disorder, unspecified; E78.5 Hyperlipidemia, unspecified; I10 Essential (primary) hypertension; J44.9 Chronic obstructive pulmonary disease, unspecified; M54.50 Low back pain, unspecified; G89.29 Other chronic pain
CPT/HCPCS: 36415; 80053; 81003; 85027; 86780; 93005; 93010; C9803-CS; U0003; U0005